=== PATIENT | female | born 1940 | race Caucasian/White ===

== ENCOUNTER 2017-06-08 01:02 | Inpatient (IN) | payer MEDICARE ==
[2017-06-08 01:32] LABS: BASO # 0.1 x10^3/uL (0.0-0.2); BASO % 1 % (0-3); EOS % 0 % (0-3); HEMATOCRIT 42.4 % (36.0-47.0); HEMOGLOBIN 14.7 g/dL (12.0-15.5); LYMPH # 1.2 x10^3/uL (1.0-4.8); LYMPH % 18 % (24-48); MEAN CORPUSCULAR HEMOGLOBIN 34 pg (25-35); MEAN CORPUSCULAR HGB CONC 35 g/dL (31-37); MEAN CORPUSCULAR VOLUME 97 fL (79-100); MONO # 1.3 x10^3/uL (0.0-1.1); MONO % 20 % (0-9); NEUT % 61 % (31-73); PLATELET COUNT 262 x10^3/uL (140-400); RED BLOOD COUNT 4.37 x10^6/uL (3.50-5.40); RED CELL DISTRIBUTION WIDTH 13.7 % (11.5-14.5); WHITE BLOOD COUNT 6.5 x10^3/uL (4.0-11.0)
[2017-06-08] MEDS: IPRATRPIUM/ALBUTEROL 0.5/2.5MG 3 ML NEBU. NEB ×6 (01:35→19:46)
[2017-06-08 01:38] LABS: ADD MAN DIFF? YES
[2017-06-08 01:47] LABS: ANION GAP 11 (6-14); BLOOD UREA NITROGEN 12 mg/dL (7-20); BUN/CREATININE RATIO 12 (6-20); CALCIUM 8.6 mg/dL (8.5-10.1); CARBON DIOXIDE 26 mmol/L (21-32); CHLORIDE 90 mmol/L (98-107); GFR 54.2; GLUCOSE 116 mg/dL (70-99); POTASSIUM 4.2 mmol/L (3.5-5.1); SODIUM 127 mmol/L (136-145)
[2017-06-08 01:51] LABS: ALBUMIN 3.3 g/dL (3.4-5.0); ALBUMIN/GLOBULIN RATIO 0.9 (1.0-1.7); ALK PHOS 99 U/L (46-116); ALT (SGPT) 35 U/L (14-59); AST (SGOT) 39 U/L (15-37); TOTAL BILIRUBIN 0.4 mg/dL (0.2-1.0); TOTAL PROTEIN 6.8 g/dL (6.4-8.2)
[2017-06-08 01:53] LABS: TROPONINI 0.018 ng/mL (0.000-0.055)
[2017-06-08 01:56] LABS: NT-PRO BNP 3129 pg/mL (0-124)
[2017-06-08 01:57] LABS: LACTIC ACID 1.6 mmol/L (0.4-2.0)
[2017-06-08] MEDS: methylPREDNISolone SOD SUCC PF 125 MG/2 ML VIAL. IV (01:57)
[2017-06-08] MEDS: IV NORMAL SALINE 1000ML BAG 1,000 ML IV (03:14)
[2017-06-08] MEDS ORDERED: ACETAMINOPHEN 325 MG TABLET. PO (03:30)
[2017-06-08] MEDS ORDERED: ONDANSETRON PF 4 MG/2 ML VIAL. IV ×2 (03:30→10:00)
[2017-06-08] MEDS: AZITHRMYCN 500MG IVPB FOR OMNI 250 ML IV (04:31)
[2017-06-08 05:17] LABS: % ATYL 1 % (0-0); % BANDS 16 % (0-9); % LYMPHS 17 % (24-48); % METAS 1 % (0-0); % MONOS 13 % (0-10); % MYELOS 1 % (0-0); % SEGS 51 % (35-66)
[2017-06-08 05:18] LABS: PLT ESTIMATE ADEQUATE (ADEQUATE); TOXIC VACUOLATION SLIGHT
[2017-06-08 06:48] LABS: LACTIC ACID 1.4 mmol/L (0.4-2.0)
[2017-06-08] MEDS ORDERED: guaiFENesin DM 200MG/20MG 10 ML SYRUP PO (10:00)
[2017-06-08] MEDS: ALBUTEROL SULFATE 2.5 MG/3 ML NEBU. NEB (10:02)
[2017-06-08] MEDS ORDERED: ONDANSETRON ODT 4 MG TAB.RAPDIS. PO (10:45)
[2017-06-08] MEDS: FUROSEMIDE 40 MG TABLET. PO (11:18)
[2017-06-08] MEDS: predniSONE 20 MG TABLET PO (11:18)
[2017-06-08] MEDS: buPROPion XL 150 MG TAB.ER.24H. PO (11:18)
[2017-06-08 20:43] LABS: INFLUENZA A PATIENT NEGATIVE (NEGATIVE); INFLUENZA B PATIENT NEGATIVE (NEGATIVE); OBC FLU VALID
[2017-06-08] MEDS: NICOTINE 21MG PATCH. TD (20:48)
[2017-06-08] MEDS: ALPRAZolam 1 MG TABLET PO (22:12)
[2017-06-09] MEDS: ALBUTEROL SULFATE 2.5 MG/3 ML NEBU. NEB (05:35)
[2017-06-09 06:12] LABS: ADD MAN DIFF? NO
[2017-06-09 06:32] LABS: BASO % 0 % (0-3); EOS % 0 % (0-3); HEMATOCRIT 40.1 % (36.0-47.0); HEMOGLOBIN 13.8 g/dL (12.0-15.5); LYMPH # 1.5 x10^3/uL (1.0-4.8); LYMPH % 22 % (24-48); MEAN CORPUSCULAR HEMOGLOBIN 34 pg (25-35); MEAN CORPUSCULAR HGB CONC 34 g/dL (31-37); MEAN CORPUSCULAR VOLUME 98 fL (79-100); MONO # 1.3 x10^3/uL (0.0-1.1); MONO % 19 % (0-9); NEUT # 3.9 x10^3uL (1.8-7.7); NEUT % 59 % (31-73); PLATELET COUNT 231 x10^3/uL (140-400); RED CELL DISTRIBUTION WIDTH 13.7 % (11.5-14.5); WHITE BLOOD COUNT 6.7 x10^3/uL (4.0-11.0)
[2017-06-09 06:37] LABS: ALBUMIN 2.9 g/dL (3.4-5.0); ALBUMIN/GLOBULIN RATIO 0.8 (1.0-1.7); ALK PHOS 96 U/L (46-116); ALT (SGPT) 34 U/L (14-59); ANION GAP 7 (6-14); AST (SGOT) 37 U/L (15-37); BLOOD UREA NITROGEN 18 mg/dL (7-20); BUN/CREATININE RATIO 26 (6-20); CALCIUM 8.6 mg/dL (8.5-10.1); CARBON DIOXIDE 29 mmol/L (21-32); CHLORIDE 95 mmol/L (98-107); CREATININE 0.7 mg/dL (0.6-1.0); GFR 81.8; GLUCOSE 104 mg/dL (70-99); POTASSIUM 3.4 mmol/L (3.5-5.1); SODIUM 131 mmol/L (136-145); TOTAL BILIRUBIN 0.2 mg/dL (0.2-1.0); TOTAL PROTEIN 6.5 g/dL (6.4-8.2)
[2017-06-09] MEDS: buPROPion XL 150 MG TAB.ER.24H. PO (07:44)
[2017-06-09] MEDS: predniSONE 20 MG TABLET PO (07:44)
[2017-06-09] MEDS: IPRATRPIUM/ALBUTEROL 0.5/2.5MG 3 ML NEBU. NEB ×2 (08:00→11:10)
== END 2017-06-09 13:24 | disposition home or self-care (01) | DRG 193 ==
LOC: ER 01:02 → 5 SOUTH 02:26
DX: J18.9 Pneumonia, unspecified organism (principal); J96.21 Acute and chronic respiratory failure with hypoxia; E44.0 Moderate protein-calorie malnutrition; J44.1 Chronic obstructive pulmonary disease with (acute) exacerbation; J44.0 Chronic obstructive pulmonary disease with (acute) lower respiratory infection; E87.1 Hypo-osmolality and hyponatremia; Z68.1 Body mass index [BMI] 19.9 or less, adult; Z99.81 Dependence on supplemental oxygen; F17.210 Nicotine dependence, cigarettes, uncomplicated; G47.00 Insomnia, unspecified; H91.90 Unspecified hearing loss, unspecified ear; F10.20 Alcohol dependence, uncomplicated; J20.9 Acute bronchitis, unspecified; F41.9 Anxiety disorder, unspecified; F32.9 Major depressive disorder, single episode, unspecified; Z60.2 Problems related to living alone; Z91.011 Allergy to milk products; Z71.89 Other specified counseling; Z82.49 Family history of ischemic heart disease and other diseases of the circulatory system
CPT/HCPCS: 36415; 71045; 80053; 83605; 83880; 84484; 85007; 85025; 87040; 87804; 87804-59; 93005; 93971; 94618; 94640; 94760; 96374; 96375; 99285; 99285-25; J0456; J0690; J2930; J7030; J7512; J7613; J7620